=== PATIENT | male | born 1965 | race Caucasian/White ===

== ENCOUNTER 2022-10-02 11:46 | Outpatient (CLI) | payer OTHER | END 2022-10-02 11:47 | disposition home or self-care (01) | LOC: CSHRAD 11:46 | PROVIDERS: ATTEND Student in an Organized Health Care Education/Training Program | DX: M54.50 Low back pain, unspecified (principal); M48.07 Spinal stenosis, lumbosacral region; M43.17 Spondylolisthesis, lumbosacral region | CPT/HCPCS: 72100 ==